=== PATIENT | female | born 1950 | race Caucasian/White ===

== ENCOUNTER → 2016-08-17 | Day surgery (SDC) | payer BC, MEDICARE ==
--- NOTE | 2016-08-09 21:12 | HP ---
HISTORY AND PHYSICAL: DATE OF SURGERY: 08/17/16 DATE OF OFFICE VISIT: 08/09/16 SURGEON: Marta Balbuena MD PROCEDURE: Left biceps tendon repair and injection of the right elbow. CHIEF COMPLAINT: Left arm pain. HISTORY OF PRESENT ILLNESS: Ms. Gee is a 66-year-old female with complaints of left arm pain near the insertion of the biceps. She has failed conservative management and has elected to proceed with surgery, which is scheduled on . PAST MEDICAL HISTORY: Hypertension, rheumatoid arthritis, ankylosing spondylitis. PAST SURGICAL HISTORY: Hysterectomy, right knee arthroscopy, right forearm I and D, right biceps repair. CURRENT MEDICATIONS: 1. Sertraline. 2. Triamcinolone acetonide. ALLERGIES: No known drug allergies. FAMILY HISTORY: Ankylosing spondylitis and rheumatoid arthritis. SOCIAL HISTORY: She is a 66-year-old female. 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. She does not smoke, use alcohol or drugs. REVIEW OF SYSTEMS: A complete 14-point review of systems was reviewed with the patient. All was negative or noncontributory. PHYSICAL EXAMINATION GENERAL: She is well developed, well nourished, in no acute distress. VITAL SIGNS: She stands 5 feet 3 inches tall, weighs 219 pounds. Her blood pressure is 150/90, and heart rate 78. HEENT: Normocephalic, atraumatic. NECK: No palpable lymph nodes. Trachea is midline. CARDIO: Regular rate and rhythm. Strong S1, S2. No murmurs, gallops, or rubs. PULMONARY: The lungs are clear to auscultation bilaterally. No wheezes, rhonchi, or rales. ABDOMEN: Soft, nontender, and nondistended. MUSCULOSKELETAL: Left upper extremity, she has some tenderness to palpation along the biceps muscle belly and distally near the elbow. She has 5 to 130 degrees flexion at the elbow with full supination and pronation. 2+ distal pulses and intact sensation. NEUROLOGIC: She is alert and oriented x3. Cranial nerves II through XII are intact. ASSESSMENT AND PLAN: Ms. Gee is a 66-year-old female who continues to have pain along the left biceps. She has elected to proceed with surgery, which is scheduled for 08/17/16. She is having left biceps tendon repair and injection of the right elbow. CORINNA TOVRA [id number]/[facility] #: [id number] ALEAH
[~2016-08-17] MED LIST: Atracurium* 10 MG/ML 10 ML VIAL ONE; Buffered Lidocaine 1% SYR 3ML* 3 ML/SYR SYRINGE INTRADERM ONE; Buffered Lidocaine 1% SYR 3ML* 3 ML/SYR SYRINGE ONE; Bupivacaine 0.25% SDV* 30 ML ONE; Bupivacaine 0.5% W/EPI SDV* 30 ML VIAL ONE; Dexamethasone IV* 4 MG/ML 1 ML (4 MG) IV SLOW PU ONE; Dexamethasone IV* 4 MG/ML 1 ML (4 MG) ONE; DiMENhydriNATE IV* 50 MG/ML VIAL IV PUSH PRN; EPHEDrine (Pressors)* 50 MG/ML VIAL ONE; Famotidine IV* 10 MG/ML 2 ML (20 mg) IV ONE; Famotidine IV* 10 MG/ML 2 ML (20 mg) ONE; Ketorolac INJ* 30 MG/ML 1 ML VIAL ONE; Lidocaine 2% MPF* 2 ML VIAL ONE; Metoprolol Tartrate IV* 1 MG/ML 5 ML VIAL ONE; Midazolam* 1 MG/ML 5 ML VIAL (5 MG) ONE; Ondansetron INJ* 2 MG/ML VIAL IV PRN; Ondansetron INJ* 2 MG/ML VIAL ONE; Propofol* 10 MG/ML 20 ML BTL IV PUSH ONE; Scopolamine 1.5 mg* PATCH TRANSDERM PRN; Scopolamine PATCH Remove* 1 NOTE MISC PATCH OFF ONE; ceFAZolin 2 GM PREMIX (*) 2 GM/50 ML BAG IVPB ONE; fentaNYL* 50 MCG/ML 2 ML VIAL (100 MCG VIAL) IV PRN; fentaNYL* 50 MCG/ML 2 ML VIAL (100 MCG VIAL) ONE; fentaNYL* 50 MCG/ML 5 ML VIAL (250 MCG VIAL) ONE; methylPREDNISolone ACETATE 80* 80 MG/ML 1 ML VIAL ONE; oxyCODONE/Acetamin 5/325 MG* TAB PO PRN
[2016-08-17 18:30] VITALS: BP 140/93
--- NOTE | 2016-08-18 14:48 | RAD ---
INDICATION: Left elbow biceps tendon repair. COMPARISON: Comparison is made with a prior MRI of the left elbow from May 10, 2016 and a prior x-ray study of the left elbow from April 27, 2016. TECHNIQUE: 17 seconds of intermittent fluoroscopic guidance were provided and 13 spot films of the left forearm and elbow were obtained in the operating room. FINDINGS: The films demonstrate several surgical instruments and postsurgical changes in the proximal diaphysis of the radius. The last film demonstrates a small clip that is present most consistent with a biceps tendon repair. IMPRESSION: INTRAOPERATIVE CONTROL FILMS. CPT II Codes: 6045F
--- NOTE | 2016-08-18 19:31 | OP ---
OPERATIVE NOTE: DATE OF OPERATION: 08/17/16 - [facility] DATE OF : 52 SURGEON: Marta Balbuena MD. TECHNOLOGY ARCHITECT: CORINNA Saldana. ANESTHESIOLOGIST: Dr. Chacon. ANESTHESIA: General. PRE-OP DIAGNOSES: Right elbow lateral epicondylitis and left elbow high-grade partial thickness tearing of the distal biceps. POST-OP DIAGNOSES: Right elbow lateral epicondylitis and left elbow high-grade partial thickness tearing of the distal biceps. OPERATIVE PROCEDURE: 1. Right elbow lateral epicondyle injection with 80 mg of Depo-Medrol. 2. Left elbow distal biceps repair. INDICATIONS: Sadie Gee is a 66-year-old female with rheumatoid arthritis as well as ankylosing spondylitis who has persistent left elbow pain in the antecubital fossa. She underwent MRI, was diagnosed with high-grade partial thickness tearing of the distal biceps with a cyst at the radial tuberosity as well as fluid collection. She has had the similar symptoms on the right side. She underwent surgery on the right side for distal biceps takedown and repair. She tolerated that procedure well. She is interested in pursuing that at this time. Risks and benefits of surgery were discussed at length and include but are not limited to bleeding, infection, damage to nerves, vessels, surrounding structures, wound nonhealing, persistent pain, need for further surgery, incomplete release of symptoms, stiffness, loss of motion. She also was complaining of right lateral epicondylitis and was requesting an injection while under anesthesia, which we discussed and she has agreed to. This entire surgery was done under loop magnification. COMPLICATIONS: None. ESTIMATED BLOOD LOSS: Minimal. Tourniquet time 60 minutes at 250 mmHg. IMPLANTS: One Arthrex distal biceps button. DESCRIPTION OF PROCEDURE: The patient was greeted in the preoperative area by the attending surgeon. Both extremities were marked and the consent was confirmed. The patient was then brought back to the operative suite. She was placed in the supine position on the operating table. She then underwent a general anesthesia with endotracheal intubation by the anesthesiologist, which she tolerated without difficulty, after which a small surgical pause was then done to indicate the site, side and procedure of the right elbow and the lateral epicondyle was palpated. The skin was prepped and draped in the usual sterile fashion. The right lateral epicondyle was palpated and a 22-gauge needle was then used to inject 3 cc of Marcaine and 80 mg of Depo-Medrol. A Band-Aid was applied and attention was directed to the left side. The hand table was brought to the table and an unsterile 18-inch tourniquet was placed high on the proximal arm. The left arm was prepped and draped in the usual sterile fashion beginning with chlorhexidine soap and alcohol scrub and a final prep with ChloraPrep. After appropriate surgical pause indicating site, side, procedure, and administration of antibiotics, the limb was exsanguinated and the tourniquet inflated to 250 mmHg. A longitudinal incision centered over the brachioradialis was then made approximately 1 to 2 cm distal from the flexion crease. The soft tissues were carefully dissected, the lateral antebrachial cutaneous nerve was identified and then protected. The dissection was taken medially in between the brachioradialis and pronator teres. The cephalic vein was identified and protected ulnarly. The soft tissues were carefully dissected, which exposed the leash vessels as well as lacertus fascia. Care was taken to try to tie up the vessels to prevent any kind of postoperative hemorrhage or hematoma. The dissection was taken towards the radial tuberosity, which was carefully palpated. The biceps was identified. It appeared to be quite diseased. It was still partially attached to this. As the dissection was taken through, a small pocket of serous fluid was obtained and evacuated. Hohmann's were placed on either side of the radial head at the level of the radial tuberosity and a 15 blade was used to detach the tendon in its entirety. It was very large and diseased, very tendinopathic and once it was completely released, it was then mobilized. It appeared to be somewhat scarred, therefore care was taken to fully free up the distal biceps without causing damage to any vessels or surrounding structures. Once this was mobilized, this was brought through the wound. A #2 Fiber loop made by Arthrex was then used to whipstitch the tendon. The excess stump was removed sharply. This was then passed through the sizer and found to be 8 mm in diameter and the biceps button was then secured to the two free strands. The attention was directed to the radial tuberosity with the forearm hypersupinated. The radial tuberosity footprint was carefully prepared using the rongeur to remove any loose debris and poor tissue. The bone quality was quite soft and there was a cyst that was present there. Therefore, care was taken to be gentle with the rongeur. Once the tuberosity was fully exposed and prepared, the guidewire was placed under fluoroscopic visualization in the center of the tuberosity. It was passed unicortically, then it was overdrilled with a size 8-mm reamer. All excess bone and debris were carefully and meticulously removed to prevent any heterotopic calcification. Once this was done, the biceps button was then deployed and the suture limbs were carefully advanced to make sure that it flipped. This was also confirmed on the C- arm, which visualized the button had flipped and was adjacent to the cortex. Next, while gently flexing the elbow, the biceps was then well seated into the tunnel. The free end of the suture was then passed to the biceps again and it was tied for a backup fixation. The wound was then copiously irrigated. The biceps was found to be intact. The wound was closed in layers with 2-0 Vicryl and subcutaneous layer and 3-0 Monocryl. Sterile dressings were applied. The wound was injected with approximately 20 cc of 0.25% Marcaine plain. Sterile dressings were applied. The tourniquet was deflated for a total time of 60 minutes. A well-padded splint was then applied with the elbow in about 90 degrees of flexion and the wrist was free. She was then awoken from anesthesia and then transferred to the PACU in stable condition. POSTOPERATIVE PLAN: She will be nonweightbearing. She will be in the splint for about 10 days and then we will transition her into a brace or we will place her in splints that we adjust the amount of flexion and extension. She will be discharged on pain medication and antibiotics. She will not take her methotrexate for approximately 6 weeks. I examined her in the postanesthesia area and she was able to extend her digits in her wrist. She visualized verbally that she had sensation about the lateral aspect of the forearm. Her extremities were warm and well perfused. She had no numbness or tingling. I will see her back in about 10 days. DVT prophylaxis considered but deferred due to no previous personal or family history. [id number]/[facility] #: [id number] [facility]
== END | disposition home or self-care (01) ==
LOC: OR 09:33 → EDSTATUS 12:15
PROVIDERS: ATTEND Orthopaedic Surgery
DX: M77.11 Lateral epicondylitis, right elbow (principal); S46.211A Strain of muscle, fascia and tendon of other parts of biceps, right arm, initial encounter; X58.XXXA Exposure to other specified factors, initial encounter; Y92.9 Unspecified place or not applicable; E66.9 Obesity, unspecified; I10 Essential (primary) hypertension; I49.3 Ventricular premature depolarization; M06.9 Rheumatoid arthritis, unspecified; F41.9 Anxiety disorder, unspecified; M45.9 Ankylosing spondylitis of unspecified sites in spine
CPT/HCPCS: 76000; J0690; J1040; J1100; J1885; J2250; J2405; J2704; J3010; J3490

== ENCOUNTER 2018-05-25 08:13 | Day surgery (SDC) | payer BC ==
--- NOTE | 2018-05-14 06:29 | HP ---
AMENDED REPORT NOW INCLUDES COSIGNER DESIGNATION - ESIGNED BEFORE ADJUSTMENTS PREOPERATIVE HISTORY AND PHYSICAL: DATE OF SURGERY/ADMISSION: 05/25/18 DATE OF OFFICE VISIT/ENCOUNTER: 05/02/18 ATTENDING SURGEON: Sandhya Yancey MD * (DICTATED BY CORINNA ELAM) PROCEDURE: Right wrist arthroscopy, ulnar shortening osteotomy. CHIEF COMPLAINT: Right wrist pain. HISTORY OF PRESENT ILLNESS: This is a 68-year-old female who complains of ongoing ulnar-sided right wrist pain since February of 2017. She denies any injury to this wrist recently or remotely. She does have a history of rheumatoid arthritis. She gets increased pain the more she uses her wrist. She denies any associated numbness or tingling with it. She has received 2 cortisone injections in the past overtime, both of which have been helpful; however, the pain returns. X-rays have showed a markedly positive ulnar variance. She has consented to proceed with surgical intervention for this problem. PAST MEDICAL HISTORY: 1. Rheumatoid arthritis. 2. Hypertension. 3. Restless leg syndrome. 4. Ankylosing spondylitis. PAST SURGICAL HISTORY: 1. Right knee arthroscopy. 2. Right and left biceps tendon repair. 3. Surgery on right arm for a pitch fork injury. 4. Hysterectomy. 5. Right carpal tunnel release. 6. Left de Quervain's release. CURRENT MEDICATIONS: 1. Folic acid 1 mg daily. 2. Humira Pen 40 mg/0.8 mL inject 40 mg subcu every other week. 3. Meloxicam 15 mg daily. 4. Methotrexate 2.5 mg 6 tabs every week. 5. Sertraline HCl 100 mg daily. 6. Ventolin HFA inhaler 1 to 2 inhalations every 4 hours p.r.n. Of note, these are the patient's prescribed medications; however, she tells me she is not taking the meloxicam or the methotrexate. ALLERGIES: No known drug allergies. FAMILY MEDICAL HISTORY: Rheumatoid arthritis and ankylosing spondylitis. 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 She denies tobacco use, recreational drug use, and does not drink alcohol. REVIEW OF SYSTEMS: Negative for general, cephalic, cardiovascular, respiratory , GI, , other musculoskeletal, integumentary, endocrine, neurologic, and hematologic symptoms. Infectious Disease is negative for MRSA, hepatitis C, and HIV. PHYSICAL EXAMINATION GENERAL: Well-developed, well-nourished 68-year-old female, in no acute distress. VITAL SIGNS: Height 5 feet 3 inches, weight 212 pounds, pulse rate 78, blood pressure 136/74. HEENT: Normocephalic, atraumatic. Pupils are equal, round, and reactive to light and accommodation. Extraocular movements are intact. Throat is clear. NECK: Supple. No palpable lymph nodes. PULMONARY: Lungs are clear to auscultation bilaterally. No wheezes, rales, or rhonchi. CARDIOVASCULAR: Regular rate and rhythm. S1, S2. No murmurs, rubs, or gallops. No edema. ABDOMEN: Positive bowel sounds. Soft, nontender. MUSCULOSKELETAL: On exam of her right wrist, she has tenderness at the distal radial ulnar joint and at the TFCC. No dorsal radial carpal tenderness. She has some pain with ulnar deviation and supination. More mild pain with flexion and extension. She can make a fist and she has good motion in her fingers. She has no weakness with finger extension. NEUROLOGIC: Alert and oriented x3. Cranial nerves II through XII are intact. Sensation is intact to light touch. IMAGING STUDIES: X-rays AP, lateral and oblique of the right wrist show some markedly positive ulnar variance approximately 4 mm and some mild osteoarthritic changes. 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 PLAN: The patient is scheduled to undergo a right wrist arthroscopy and an ulnar shortening osteotomy with Dr. Yancey on 05/25/18. She will return to the office 10 days postop for followup and suture removal. A prescription for Irwin was e- scribed to the patient's pharmacy for postoperative pain management. CORINNA ELAM [id number]/[facility] #: [id number] MTDD
[~2018-05-25 08:13] MED LIST changes: -Atracurium* 10 MG/ML 10 ML VIAL ONE; +Buffered Lidocaine 0.9% SYRIN* 5 ML/SYR SYRINGE INTRADERM ONE; -Buffered Lidocaine 1% SYR 3ML* 3 ML/SYR SYRINGE INTRADERM ONE; -Buffered Lidocaine 1% SYR 3ML* 3 ML/SYR SYRINGE ONE; -Bupivacaine 0.25% SDV* 30 ML ONE; -Bupivacaine 0.5% W/EPI SDV* 30 ML VIAL ONE; -DiMENhydriNATE IV* 50 MG/ML VIAL IV PUSH PRN; -EPHEDrine (Pressors)* 50 MG/ML VIAL ONE; -Ketorolac INJ* 30 MG/ML 1 ML VIAL ONE; -Lidocaine 2% MPF* 2 ML VIAL ONE; -Metoprolol Tartrate IV* 1 MG/ML 5 ML VIAL ONE; -Midazolam* 1 MG/ML 5 ML VIAL (5 MG) ONE; -Ondansetron INJ* 2 MG/ML VIAL IV PRN; -Ondansetron INJ* 2 MG/ML VIAL ONE; -Propofol* 10 MG/ML 20 ML BTL IV PUSH ONE; -Scopolamine 1.5 mg* PATCH TRANSDERM PRN; -Scopolamine PATCH Remove* 1 NOTE MISC PATCH OFF ONE; -ceFAZolin 2 GM PREMIX (*) 2 GM/50 ML BAG IVPB ONE; -fentaNYL* 50 MCG/ML 2 ML VIAL (100 MCG VIAL) IV PRN; -fentaNYL* 50 MCG/ML 2 ML VIAL (100 MCG VIAL) ONE; -fentaNYL* 50 MCG/ML 5 ML VIAL (250 MCG VIAL) ONE; -methylPREDNISolone ACETATE 80* 80 MG/ML 1 ML VIAL ONE; -oxyCODONE/Acetamin 5/325 MG* TAB PO PRN
[2018-05-25] MEDS ORDERED: ceFAZolin 2 GM in NS PREMIX(*) 2 GM/100 ML BAG IVPB ONE (08:20)
[2018-05-25] MEDS ORDERED: Bupivacaine 0.25% SDV* 30 ML ONE (08:30)
[2018-05-25] MEDS ORDERED: Midazolam* 1 MG/ML 2 ML VIAL (2 MG) ONE (08:36)
[2018-05-25] MEDS ORDERED: fentaNYL* 50 MCG/ML 2 ML VIAL (100 MCG VIAL) ONE (08:36)
[2018-05-25] MEDS ORDERED: Lidocaine 0.5%* 50 ML SDV ONE (08:40)
[2018-05-25] MEDS ORDERED: Propofol* 10 MG/ML 20 ML BTL IV PUSH ONE ×2 (09:30→09:51)
[2018-05-25] MEDS ORDERED: fentaNYL* 50 MCG/ML 2 ML VIAL (100 MCG VIAL) IV PRN (10:02)
[2018-05-25] MEDS ORDERED: Ondansetron INJ* 2 MG/ML VIAL IV PRN (10:02)
[2018-05-25] MEDS ORDERED: Naloxone* 0.4 MG/ML 1 ML VIAL IV PRN (10:02)
[2018-05-25] MEDS ORDERED: HYDROcodone/ACETAMIN 5-325 MG* 1 TAB ONE (10:22)
[2018-05-25 10:53] VITALS: BP 130/74
--- NOTE | 2018-05-26 02:34 | OP ---
DATE OF OPERATION: 05/25/18 [facility] DATE OF : 52 SURGEON: Sandhya Yancey MD PAYROLL CLERK: CORINNA Saldana. ANESTHESIA: IV regional. 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 OPERATIVE PROCEDURE: Right wrist arthroscopy, debridement, and ulnar shortening osteotomy. ESTIMATED BLOOD LOSS: Zero. TOURNIQUET TIME: About 45 minutes. INDICATIONS FOR PROCEDURE: Sadie is a 68-year-old female with rheumatoid arthritis with pain at the ulnar aspect of her right wrist for over a year. She has had some relief with cortisone injection. Her x-ray shows an ulnar positive variance of about 3 mm. She presents for a right wrist arthroscopy, debridement and ulnar shortening osteotomy. DESCRIPTION OF PROCEDURE: The patient was brought to the operating room, was given a IV regional anesthetic with a tourniquet around her right upper arm. The skin of her right upper extremity was prepped and draped in the usual sterile fashion. Three stab incisions were made at the wrist joint after filling the wrist radiocarpal joint with 10 cc of 0.5% Marcaine with epinephrine. First stab incision was made at the radiocarpal joint and the arthroscope was placed in the joint. A second stab incision was made after placing a spinal needle in the 6U portal and then the 2.0 Gator shaver was placed in the radiocarpal joint. There was synovitis surrounding the TFCC, but there was no specific tear of this TFCC. The synovitis was debrided with the shaver. The radiocarpal joint articular surfaces were all intact. The scapholunate ligament was intact. Next, a third stab incision was made at the just distal to the first and the arthroscope was placed in the mid carpal joint. There was some scaphocapitate arthritis, but no evidence of the scapholunate or lunotriquetral ligament injury or dysfunction. The arthroscope instruments were removed and the incisions closed with 4-0 nylon suture. Next, a longitudinal incision was made along the subcutaneous border of the ulna, dissected sharply through the interval between the ECU and FCU and subperiosteally dissected the tissue off of the ulna. The plate from the [employer] ulnar shortening set was secured with one distal and three proximal screws. Two K-wires were then placed through the appropriate guide and we have predetermined a 4-mm shortening. The first cut was made with the proper guide and the second cut made with the sagittal saw again through the 4-mm cutting guide. The screw with a slotted hole was loosened and after drilling a guidewire through the distal fragment, a compression tool was used to reapproximate where the osteotomy had taken place. The slotted screw was retightened and then we drilled for the lag screw, measured for an 18 mm lag screw and placed a partially threaded lag screw across the osteotomy site. The distal two screws were then placed. The position of the hardware, osteotomy fragments, and wrist joint were all checked on the C-arm and was found to be satisfactory, the joint was now levelled. The wound was irrigated and the fascia between the ECU and FCU was repaired with 2-0 Polysorb sutures, subcutaneous tissue was closed with 2-0 Polysorb and the skin with skin noe. The wound was dressed with Xeroform, 4x4, Webril and a volar splint. The patient tolerated the procedure well and was brought to the recovery room in good condition. [id number]/[facility] #: [id number] ALEAH
--- NOTE | 2018-05-31 09:23 | RAD ---
INDICATION: Right wrist. M 25.531. COMPARISONS: April 06, 2017 TECHNIQUE: Fluoroscopy was provided for a surgical procedure. Total fluoroscopy time is: 35 seconds FINDINGS: Spot images demonstrate internal fixation of the ulna. IMPRESSION: FLUOROSCOPY WAS PROVIDED FOR A SURGICAL PROCEDURE CPT II Codes: G9500
== END 2018-05-25 10:58 | disposition home or self-care (01) ==
LOC: OREAST 08:13
PROVIDERS: ATTEND Orthopaedic Surgery
DX: M24.831 Other specific joint derangements of right wrist, not elsewhere classified (principal); M06.9 Rheumatoid arthritis, unspecified; I10 Essential (primary) hypertension; G25.81 Restless legs syndrome; M45.9 Ankylosing spondylitis of unspecified sites in spine; R00.2 Palpitations; Z68.37 Body mass index [BMI] 37.0-37.9, adult; I49.3 Ventricular premature depolarization
CPT/HCPCS: 76000; 88304; 88311; C1713; C1776; J0690; J1100; J2250; J2704; J3010

== ENCOUNTER → 2018-10-23 05:59 | Day surgery (SDC) | payer BC ==
--- NOTE | 2018-10-16 07:48 | HP ---
HISTORY AND PHYSICAL: DATE OF SURGERY: 10/23/18 DATE OF OFFICE VISIT: 10/12/18 SURGEON: Lisa Wallace MD * (DICTATED BY CORINNA TOVAR) PROCEDURES: Right knee arthroscopy with partial meniscectomy, possible chondroplasty, possible synovectomy. CHIEF COMPLAINT: Right knee pain. HISTORY OF PRESENT ILLNESS: Ms. Gee is a 68-year-old female with complaints of right knee pain. An MRI confirms the meniscus tear. She elected to proceed with surgery. PAST MEDICAL HISTORY: RA, hypertension, ankylosing spondylitis. PAST SURGICAL HISTORY: Bilateral biceps tendon repair, right carpal tunnel release, left de Quervain's release, right knee arthroscopy, hysterectomy and ulnar shortening, right arm. CURRENT MEDICATIONS: 1. Methotrexate 2.5 mg 7 tablets weekly. 2. Folic acid 1 mg a day. 3. Sulfasalazine 500 mg 2 tabs daily. 4. Lisinopril 20 mg a day. 5. Sertraline 100 mg a day. 6. Keflex 500 mg. ALLERGIES: No known drug allergies. FAMILY HISTORY: Coronary artery disease. SOCIAL HISTORY: She is a 68-year-old female. She lives with her son. She does not smoke, use drugs or alcohol. REVIEW OF SYSTEMS: A complete 14-point of review of systems was reviewed with the patient and was all negative or noncontributory. She denies history of DVT , PE, hepatitis, HIV, or anesthesia problems. PHYSICAL EXAMINATION GENERAL: She is well developed, well nourished, in no acute distress. VITAL SIGNS: She stands 5 feet 3 inches tall, weighs 220 pounds. Her blood pressure 138/70, her heart rate is 88. HEENT: Normocephalic, atraumatic. NECK: Supple. No palpable lymph nodes. PULMONARY: Lungs are clear to auscultation bilaterally. CARDIO: Regular rate and rhythm. Strong S1, S2. ABDOMEN: Soft, nontender, nondistended. NEUROLOGICAL: She is alert and oriented x3. MUSCULOSKELETAL: Right lower extremity: The skin is intact. There are no open wounds or abrasions. Her lower extremity muscle group strengths are intact at 5/5. She has a 2+ dorsalis pedis pulse. Range of motion is 10 to 120 degrees of flexion with patellofemoral crepitus, positive Apley's, positive Aline's. ASSESSMENT AND PLAN: Ms. Gee is a 68-year-old female with complaints of right knee pain. An MRI confirms meniscus tear. She elected to proceed with right knee arthroscopy with partial meniscectomy, possible chondroplasty, possibly synovectomy. The surgery is scheduled for 10/23/[address] Wallace discussed the risks and benefits of the surgery at today's visit and all of her questions were answered. She will follow up with Dr. Wallace 2 weeks after the surgery. CORINNA TOVAR [id number]/[facility] #: [id number] MTDTez
[~2018-10-23 05:59] MED LIST changes: -Buffered Lidocaine 0.9% SYRIN* 5 ML/SYR SYRINGE INTRADERM ONE; +Buffered Lidocaine 1% SYRIN* 1 ML/SYRINGE INTRADERM ONE; +Bupivacaine 0.5%* 50 ML VIAL ONE; +DiMENhydriNATE IV* 50 MG/ML VIAL IV PUSH PRN; +EPINEPHRINE 1 MG/ML 1 ML VIAL ONE; +Ketorolac INJ* 30 MG/ML 1 ML VIAL ONE; +Lactated Ringers 1000 ML Bag* 1,000 ML IV SCH; +Levalbuterol HFA INHALER* 1 PUFF MDI ONE; +Lidocaine 2% PF * 5 ML VIAL ONE; +Midazolam* 1 MG/ML 5 ML VIAL (5 MG) ONE; +Naloxone* 0.4 MG/ML 1 ML VIAL IV PRN; +Ondansetron INJ* 2 MG/ML VIAL IV PRN; +Ondansetron INJ* 2 MG/ML VIAL ONE; +Phenylephrine INJ* 10 MG/ML 1 ML VIAL (10 MG) ONE; +Propofol* 10 MG/ML 20 ML BTL ONE; +ceFAZolin 2 GM in NS PREMIX(*) 2 GM/100 ML BAG IVPB ONE; +fentaNYL* 50 MCG/ML 2 ML VIAL (100 MCG VIAL) IV PRN; +fentaNYL* 50 MCG/ML 5 ML VIAL (250 MCG VIAL) ONE; +methylPREDNISolone ACETATE 80* 80 MG/ML 1 ML VIAL ONE; +oxyCODONE/Acetamin 5/325 MG* TAB PO PRN
[2018-10-23 10:26] VITALS: BP 149/87
--- NOTE | 2018-10-23 21:57 | OP ---
DATE OF OPERATION: 10/23/18 [facility] DATE OF : 52 ATTENDING SURGEON: Lisa Wallace MD. BUS WASHER: CORINNA Rogers. ANESTHESIOLOGIST: Dr. Chacon. ANESTHESIA: General. PRE-OP DIAGNOSES: Right knee lateral meniscal tear and rheumatoid arthritis. POST-OP DIAGNOSES: Right knee lateral meniscal tear and rheumatoid arthritis. OPERATIVE PROCEDURE: Right knee arthroscopy with partial lateral meniscectomy. SPECIMEN: None. COMPLICATIONS: None. ESTIMATED BLOOD LOSS: Less than 25 cc. BRIEF HISTORY/INDICATIONS: Ms. Gee is a 68-year-old female known to ca for rheumatoid arthritis and knee pain for several years. Since July, she had an acute increase in pain with mechanical symptoms along the joint line both medially and laterally. She did have a fall with twisting injury to the knee at that time. She had failed conservative treatment with physical therapy, home exercise program, intraarticular injections, and her antiinflammatory medications. MRI confirmed a lateral meniscal tear. Due to continued pain and decreased quality of life, she elected to undergo right knee arthroscopy with partial meniscectomy. Informed consent was obtained from the patient. She understood the risks of surgery included but were not limited to bleeding, infection, damage to nearby structures, continued pain, need for further surgery , re-tear of the meniscus, continued progression of arthritis, anesthesia, complication, stroke, heart attack, blood clot, and . She wished to proceed. INTRAOPERATIVE FINDINGS: Intraoperatively, the patient was noted to have a radial tear of the anterior horn of the lateral meniscus, which was displaced into the joint line. She had some anterior synovitis. She had inflamed synovium around the entire joint. She had grade 2 and 3 Outerbridge cartilage changes in the patellofemoral compartment. DESCRIPTION OF PROCEDURE: Ms. Gee was identified in the preanesthesia unit. Her right lower extremity was marked as the correct operative side. Informed consent was signed and placed in the chart. The patient was taken to the operating room and placed under general anesthesia. Right lower extremity was prepped and draped in the usual sterile fashion. Preop time-out was made to correctly identify the patient, side, and site. Appropriate perioperative antibiotics were given within 1 hour of incision. Anterolateral portal incision was made with a #15 blade and carried down through the capsule. The trocar was introduced. As soon as the light and water sources were turned on, there was immediate visualization of the suprapatellar pouch. A tour of the knee joint was performed. Suprapatellar pouch had no obvious abnormalities. Patellofemoral compartment had some grade 2 and 3 Outerbridge cartilage changes. Medial gutter showed no loose body or plica. Medial compartment showed no obvious meniscal tear. There were minimal degenerative changes. ACL and PCL appeared to be intact. There was noted to be some synovitis around the joint capsule and small amounts of synovitis anteriorly. The knee was placed in a [id number] position. The anterolateral meniscus had a radial tear displaced into the joint space. Minimal degenerative changes were noted here. No loose body or plica in the lateral gutter. Under direct visualization, a medial portal incision was made. Shaver and radiofrequency ablation wand were used to perform slight anterior synovectomy. Straight biter and shaver were used to perform partial lateral meniscectomy. Radiofrequency ablation wand was used to further smooth the edge of the meniscus. Further probing of the medial and lateral meniscus showed no additional tears. ACL and PCL were intact. The knee was copiously irrigated with sterile saline. All instruments were removed. Incisions were closed using 3-0 nylon suture. Intraarticular injection of 80 mg Depo-Medrol and 6 cc of 0.25% Marcaine are placed in the knee joint. The patient's incisions were covered with Xeroform, 4x4s, and Webril. [place] wrap and cold pack were placed over this. The patient's anesthesia was reversed without difficulty. She was taken to the PACU in stable condition. Intended weightbearing will be weightbearing as tolerated. Intended DVT prophylaxis will be aspirin. [id number]/[facility] #: [id number] [facility] SYSTEM[facility]z
== END | disposition home or self-care (01) ==
LOC: OR 05:59
PROVIDERS: ATTEND Orthopaedic Surgery Adult Reconstructive Orthopaedic Surgery
DX: S83.281A Other tear of lateral meniscus, current injury, right knee, initial encounter (principal); M06.9 Rheumatoid arthritis, unspecified; W19.XXXA Unspecified fall, initial encounter; Y92.9 Unspecified place or not applicable; I10 Essential (primary) hypertension; M45.9 Ankylosing spondylitis of unspecified sites in spine
CPT/HCPCS: A9270-GY; J0690; J1040; J1100; J1885; J2250; J2405; J2704; J3010

== ENCOUNTER 2019-02-12 07:40 | Emergency (ER) | payer BC ==
--- NOTE | 2019-02-12 08:12 | ED ---
Dizziness - HPI Summary HPI Summary: 68 year old F presenting to [facility] with a chief complaint of dizziness since 2 days ago. The patient rates the pain 0/10 in severity. Symptoms aggravated by turning her head. Symptoms alleviated by nothing. Patient reports decreased appetite. Patient denies nausea, vomiting, weakness, numbness, headache, blurred vision, chest pain, shortness of breath, palpitations. Patient went to [facility] yesterday and was diagnosed with lightheadedness. She was referred to the ED yesterday but decided not to go. - History Of Current Complaint Chief Complaint: EDDizziness Stated Complaint: LIGHT HEADED SINCE NOON ON MONDAY PER PT Hx Obtained From: Patient Onset/Duration: Still Present Timing: Constant Severity Currently: None Aggravating Factor(s): Change In Head Position Alleviating Factor(s): Nothing Associated Signs And Symptoms: Positive: Negative - nausea, vomiting, weakness, numbness, headache, blurred vision, chest pain, shortness of breath, palpitations, Other: - decreased appetite - Allergies/Home Medications Allergies/Adverse Reactions: Allergies Allergy/AdvReac Type Severity Reaction Status Date / Time nickel Allergy Rash Verified 02/12/19 07:47 Home Medications: Home Medications Cholecalciferol TAB* [Vitamin D TAB*] 1,000 unit PO DAILY 02/12/19 [History Confirmed 02/12/19] PMH/Surg Hx/FS Hx/Imm Hx Previously Healthy: No Endocrine/Hematology History: Denies: Hx Diabetes Cardiovascular History: Reports: Hx Hypertension - ON MEDICATION FOR, Other Cardiovascular Problems/Disorders - PVC'S Denies: Hx Congestive Heart Failure, Hx Pacemaker/ICD Respiratory History: Reports: Other Respiratory Problems/Disorders - PNUEMONIA - 2013 GI History: Denies: Hx Gastroesophageal Reflux Disease History: Denies: Hx Renal Disease Musculoskeletal History: Reports: Hx Arthritis - RA-CURRENT FLARE UP-DR. BERNARDO FOLLOWS, Hx Rheumatoid Arthritis, Other Musculoskeletal History - ANKYLOSIS SPONDYLOSIS Denies: Hx Osteoporosis Sensory History: Reports: Hx Contacts or Glasses - READING GLASSES Denies: Hx Hearing Aid Opthamlomology History: Reports: Hx Contacts or Glasses - READING GLASSES Psychiatric History: Reports: Hx Anxiety - ON MEDICATION FOR, Hx Depression - ON MEDS PT STATES CONTROLLED Denies: Hx Panic Disorder - Cancer History Hx Chemotherapy: No Hx Radiation Therapy: No - Surgical History Surgery Procedure, Year, and Place: 1980 RIGHT FOREARM REPAIR FROM PITCHFORK INJURY, [facility] [place]. 1989' RIGHT KNEE ARTHROSCOPY, [facility] [place]. 1992 HYSTERECTOMY, [facility] [place]. 2006 LEFT DEQUERVAINS RELEASE, [facility] [place]. 2008 RIGHT CARPAL TUNNEL RELEASE, [facility] [place]. 2013 RIGHT ELBOW DISTAL BICEPS TENDON REPAIR, [facility] [place]. 2016 LEFT/RIGHT ELBOW DISTAL BICEPS TENDON REPAIR, [facility] [place]. 05/2018-ULNAR SHORTENING- RIGHT- HEATH Hx Anesthesia Reactions: No Infectious Disease History: No Infectious Disease History: Denies: Traveled Outside the [place] in Last 30 Days - Family History Known Family History: Positive: Other - "inflammatory stuff" Negative: Cardiac Disease, Hypertension, Diabetes - Social History Alcohol Use: None Hx Substance Use: Yes Substance Use Type: Reports: Marijuana Hx Tobacco Use: No Smoking Status (MU): Never Smoked Tobacco Have You Smoked in the Last Year: No Review of Systems Negative: Blurred Vision Negative: Palpitations, Chest Pain Negative: Shortness Of Breath Positive: Other - decreased appetite. Negative: Vomiting, Nausea Neurological: Other - Dizziness Negative: Headache, Weakness, Numbness All Other Systems Reviewed And Are Negative: Yes Physical Exam - Summary Physical Exam Summary: VITAL SIGNS: Reviewed. GENERAL: Patient is a well-developed and nourished FEMALE who is lying comfortable in the stretcher. Patient is not in any acute respiratory distress. HEAD AND FACE: No signs of trauma. No ecchymosis, hematomas or skull depressions. No sinus tenderness. EYES: PERRLA, EOMI x 2, No injected conjunctiva, no nystagmus. EARS: Hearing grossly intact. Ear canals and tympanic membranes are within normal limits. MOUTH: Oropharynx within normal limits. NECK: Supple, trachea is midline, no adenopathy, no JVD, no carotid bruit, no c- spine tenderness, neck with full ROM. CHEST: Symmetric, no tenderness at palpation LUNGS: Clear to auscultation bilaterally. No wheezing or crackles. CVS: Regular rate and rhythm, S1 and S2 present, no murmurs or gallops appreciated. ABDOMEN: Soft, non-tender. No signs of distention. No rebound no guarding, and no masses palpated. Bowel sounds are normal. EXTREMITIES: FROM in all major joints, no edema, no cyanosis or clubbing. NEURO: Alert and oriented x 3. No acute neurological deficits. Speech is normal and follows commands. SKIN: Dry and warm. GCS: 15 Triage Information Reviewed: Yes Vital Signs On Initial Exam: Initial Vitals Temp Pulse Resp BP Pulse Ox 97.5 F 77 19 176/105 98 02/12/19 07:43 02/12/19 07:43 02/12/19 07:43 02/12/19 07:43 02/12/19 07:43 Vital Signs Reviewed: Yes Diagnostics - Vital Signs Vital Signs Temp Pulse Resp BP Pulse Ox 02/12/19 07:43 97.5 F 77 19 176/105 98 - Laboratory Result Diagrams: 02/12/19 08:26 02/12/19 08:26 Lab Statement: Any lab studies that have been ordered have been reviewed, and results considered in the medical decision making process. - Radiology Chest x-ray Radiology Interpretation Completed By: Radiologist Summary of Radiographic Findings: 1. No evidence for acute intrathoracic disease. ED physician has reviewed this report. - CT Brain CT Interpretation Completed By: Radiologist Summary of CT Findings: 1. No acute intracranial process evident. 2. Suggestion of mild cerebellar atrophy. ED physician has reviewed this report. - EKG 0821 Cardiac Rate: NL - 74 BPM EKG Rhythm: Sinus Rhythm EKG Comparison: No Significant Change - 08/06/15 Summary of EKG Findings: Sinus rhythm [address] elevations. No significant change compared to 08/06/15. Re-Evaluation - Re-Evaluation First Eval Re-Evaluation Time: 10:07 Change: Improved Comment: patient feels better. patient is agreeable to discharge Dizzy Course/Dx - Course Assessment/Plan: 68 year old F presenting to [facility] with a chief complaint of dizziness since 2 days ago. The patient rates the pain 0/10 in severity. Symptoms aggravated by turning her head. Symptoms alleviated by nothing. Patient reports decreased appetite. Patient denies nausea, vomiting, weakness, numbness, headache, blurred vision, chest pain, shortness of breath, palpitations. Patient went to [facility] yesterday and was diagnosed with lightheadedness. She was referred to the ED yesterday but decided not to go. Past medical history significant for depression, rheumatoid arthritis, hypertension, and asthma. In the ED course the patient was placed in a pick up attendant, IV access was obtained, IV fluids were started. Patient was given meclizine for the dizziness. Blood work without any significant abnormality except for glucose of 116 and CRP of 14.2. Head CT impression: No evidence for acute intracranial disease. Suggestion of mild cerebellar atrophy. Chest x-ray impression: No evidence for acute intrathoracic disease. After the patient was given these medications the patients symptoms have significantly improved. Patient reports that the dizziness has improved. At this point I discussed all the findings and test results with the patient. She was instructed to return to the emergency room immediately if any of the symptoms return or worsens. She understands and agrees. Neurological exam before discharge: Patient is alert and oriented x 3. No acute neurological deficits. Patient vital signs are stable. Patient is to follow up with CPP in the next 2 3 days. She understands and agrees. Plan of care was discussed with the patient and patient understands and agrees with the plan of care. All questions were answered at patient satisfaction. There were no further complaints or concerns. - Diagnoses Provider Diagnoses: BPV (benign positional vertigo) Discharge - Sign-Out/Discharge Documenting (check all that apply): Patient Departure - Dishcarge Patient Received Moderate/Deep Sedation with Procedure: No - Discharge Plan Condition: Stable Disposition: HOME Prescriptions: Meclizine TAB* [Antivert 12.5 TAB*] 25 mg PO TID PRN #30 tab PRN Reason: Dizziness Patient Education Materials: Vertigo (ED) Referrals: Cassandra Martinez MD [Primary Care Provider] - 3 Days Additional Instructions: Follow up with your primary care provider in 3 days. Return to the Emergency Department for new or worsening symptoms. - Billing Disposition and Condition Condition: STABLE Disposition: Home - Attestation Statements Document Initiated by Alexandro: Yes Documenting Scribe: Sandy Currie Provider For Whom Alexandro is Documenting (Include Credential): Zohaib Jennings MD Scribe Attestation: Sandy Bruce, scribed for Zohaib Jennings MD on 02/13/19 at 2101. Scribe Documentation Reviewed: Yes Provider Attestation: The documentation as recorded by the Sandy joiner accurately reflects the service I personally performed and the decisions made by me, Zohaib Jennings MD Status of Scribe Document: Viewed
[2019-02-12] MEDS ORDERED: NS 0.9% 1000 ML** 1,000 ML IV ONE (08:14)
[2019-02-12] MEDS ORDERED: Meclizine TAB* 12.5 MG PO ONE (08:14)
[2019-02-12 08:38] LABS: ABS Basophils 0.1 10^3/ul (0-0.2); ABS Eosinophils 0.1 10^3/ul (0-0.6); ABS Lymphocytes 1.3 10^3/ul (1.0-4.8); ABS Monocytes 0.3 10^3/ul (0-0.8); ABS Neutrophils 4.6 10^3/ul (1.5-7.7); Eosinophil % 1.7 %; Hematocrit 41 % (35-47); Hemoglobin 13.6 g/dL (12.0-16.0); Mean Corpuscular HGB Conc 34 g/dL (31-36); Mean Corpuscular Hemoglobin 30 pg (27-31); Mean Corpuscular Volume 90 fL (80-97); Mean Platelet Volume 7.6 fL (7.4-10.4); Nucleated Red Blood Cells % 0.1; Platelet Count 311 10^3/uL (150-450); Red Blood Count 4.52 10^6 /uL (3.70-4.87); Red Cell Distribution Width 14 % (10-15); White Blood Count 6.3 10^3/uL (3.5-10.8)
[2019-02-12 09:00] LABS: Albumin 4.1 g/dL (3.2-5.2); Albumin/Globulin Ratio 1.5 (1-3); BUN/Creatinine Ratio 22.2 (8-20); C Reactive Protein 14.29 mg/L (<8.01); Calcium 9.2 mg/dL (8.6-10.3); EGFR African American 114.1 (>60); EGFR Non-African American 94.3 (>60); Globulin 2.8 g/dL (2-4); Magnesium 2.1 mg/dL (1.9-2.7); Potassium 3.8 mmol/L (3.5-5.0); Total Bilirubin 0.4 mg/dL (0.2-1.0); Total Protein 6.9 g/dL (6.4-8.9)
[2019-02-12 09:57] LABS: TSH (Thyroid Stimulating Horm) 2.62 mcIU/mL (0.34-5.60)
[2019-02-12 10:21] VITALS: BP 148/82
== END 2019-02-12 10:19 | disposition home or self-care (01) ==
LOC: ED 07:40
DX: H81.10 Benign paroxysmal vertigo, unspecified ear (principal); R11.2 Nausea with vomiting, unspecified; R53.1 Weakness; R20.0 Anesthesia of skin; R51 Headache; H53.8 Other visual disturbances; R07.9 Chest pain, unspecified; R06.02 Shortness of breath; R00.2 Palpitations; I10 Essential (primary) hypertension; Z86.79 Personal history of other diseases of the circulatory system
CPT/HCPCS: 36415; 70450; 71046; 80053; 82550; 83605; 83735; 83880; 84443; 84484; 85025; 86140; 93005; 96360; 96361; 99284; A9270-GY